=== PATIENT | male | born 1955 | race African-American/Black ===

== ENCOUNTER 2019-05-07 16:57 | Inpatient (IN) ==
[2019-05-07] MEDS ORDERED: ACETAMINOPHEN 325 MG TABLET PO PRN (18:48)
[2019-05-07] MEDS ORDERED: ONDANSETRON 4 MG/2 ML VIAL IV PRN (18:48)
[2019-05-07 20:28] LABS: Hematocrit 29.3 VOL% (42.0-52.0); Hemoglobin 9.7 GM/DL (14.0-18.0)
[2019-05-07] MEDS: PANTOPRAZOLE 40 MG TABLET PO SCH (21:25)
[2019-05-08 03:07] LABS: Hematocrit 23.9 VOL% (42.0-52.0)
[2019-05-08 06:28] LABS: Albumin 2.6 G/DL (3.4-5.0); Bilirubin,Total 0.4 MG/DL (0.2-1.0); Calcium 7.5 MG/DL (8.5-10.1); Osmolality,Calculated 296.6 MOS/KG (273-304); Total Protein 5.5 G/DL (6.4-8.3)
[2019-05-08 08:26] LABS: Hematocrit 25.5 VOL% (42.0-52.0); Hemoglobin 8.4 GM/DL (14.0-18.0)
[2019-05-08] MEDS ORDERED: PANTOPRAZOLE 40 MG TABLET PO SCH (09:00)
[2019-05-08] MEDS: PANTOPRAZOLE 40 MG TABLET PO SCH ×2 (09:27→20:25)
[2019-05-08 14:19] LABS: Hematocrit 23.4 VOL% (42.0-52.0); Hemoglobin 7.7 GM/DL (14.0-18.0)
[2019-05-08 19:54] LABS: Hematocrit 26.9 VOL% (42.0-52.0); Hemoglobin 8.7 GM/DL (14.0-18.0)
[2019-05-08] MEDS ORDERED: LATANOPROST 0.005% OPH SOLN 2.5 ML BOTTLE BOTH EYES SCH (21:00)
[2019-05-09 02:17] LABS: Hematocrit 23.6 VOL% (42.0-52.0); Hemoglobin 7.7 GM/DL (14.0-18.0)
[2019-05-09] MEDS ORDERED: SODIUM CHLORIDE 0.9% 1,000 ML IV PRN (02:28)
[2019-05-09 02:42] LABS: Osmolality,Calculated 292.6 MOS/KG (273-304)
[2019-05-09] MEDS ORDERED: LACTATED RINGERS 1,000 ML IV SCH (08:00)
[2019-05-09] MEDS ORDERED: ETOMIDATE 20 MG/10 ML VIAL IV ONE (09:30)
[2019-05-09] MEDS ORDERED: LIDOCAINE 2% 5 ML VIAL ONE (09:30)
[2019-05-09] MEDS ORDERED: propofoL 200 MG/20 ML VIAL IV ONE (09:30)
[2019-05-09] MEDS: PANTOPRAZOLE 40 MG TABLET PO SCH (10:01)
[2019-05-09 11:11] LABS: Hematocrit 29.4 VOL% (42.0-52.0)
[2019-05-09 11:14] LABS: Hemoglobin 9.8 GM/DL (14.0-18.0)
[2019-05-09 13:46] VITALS: BP 162/87
== END 2019-05-09 16:10 | disposition home or self-care (01) | DRG 369 ==
LOC: N.5E → SUATTDRO 18:14 → OBSVTOIN 18:14 → SUATTDRO 18:48
PROVIDERS: ADMIT Internal Medicine; ATTEND Internal Medicine